=== PATIENT | male | born 1995 | race Caucasian/White ===

== ENCOUNTER 2017-04-19 23:52 | Emergency (ER) | payer SELFPAY ==
[~2017-04-19] VITALS: Ht 182.9 cm; Wt 124.0 kg
[2017-04-20 00:05] VITALS: Ht 182.9 cm; Wt 124.0 kg
[2017-04-20] MEDS ORDERED: HYDROCODONE/APAP (10/325) TAB PO ONE (01:00)
[2017-04-20] MEDS ORDERED: ONDANSETRON (ODT) 4 MG TAB ODT STA (01:01)
[2017-04-20] MEDS ORDERED: morphine 10 MG INJ IM ONE (01:30)
--- NOTE | 2017-04-20 01:39 | RADRPT ---
PROCEDURE: X-ray lumbar spine CLINICAL INDICATION: Recent surgery for pilonidal cyst TECHNIQUE: 4 views of the AP and lateral lumbar spine COMPARISON: None FINDINGS: No acute fracture or dislocation. Soft tissues unremarkable. IMPRESSION: Unremarkable lumbar spine series. RPTAT: [facility] Physician [place] Date Time Electronically viewed and signed by [employer] Physician on 04/20/2017 01:39 RS/
[2017-04-20] MEDS ORDERED: HYDR-902 PO (01:45)
[2017-04-20] MEDS ORDERED: IBUP800T25 PO (01:45)
--- NOTE | 2017-04-20 01:48 | ERD ---
ER Documentation Chief Complaint Date/Time DATE: 04/20/17 TIME: 01:46 Chief Complaint lowere back pain,sp I and D on pilonida abscesss 4 days ago, for dressing HPI Patient is a 22-year-old male who is status post incision and drainage done surgically at an outside facility 4 days ago. He still has dressing in place and has follow-up in 1 week but today he states he fell to his lower back and severe pain. He is able to ambulate slowly with pain. Denies any fever. Denies any nausea or vomiting. He states he has been taking Tylenol Motrin but does not help with the pain. ROS All systems reviewed and are negative except as per history of present illness. Medications Home Meds Active Scripts Hydrocodone/Acetaminophen (Dorrance 10-325 Tablet) 1 Each Tablet, 1 TAB PO Q6H Y for PAIN, #10 TAB Prov:LANNY OLVERA PA-C 04/20/17 Ibuprofen* (Motrin*) 800 Mg Tab, 800 MG PO Q6H Y for PAIN AND OR ELEVATED TEMP, #30 TAB Prov:LANNY OLVERA PA-C 04/20/17 Allergies Allergies: Coded Allergies: No Known Allergy (Unverified , 04/19/17) PMhx/Soc History of Surgery: No Anesthesia Reaction: No Hx Neurological Disorder: No Hx Respiratory Disorders: No Hx Cardiac Disorders: No Hx Psychiatric Problems: No Hx Miscellaneous Medical Probl: No Hx Alcohol Use: No Hx Substance Use: No Hx Tobacco Use: No Smoking Status: Never smoker FmHx Family History: No diabetes Physical Exam Vitals Vital Signs Date Time Temp Pulse Resp B/P Pulse Ox O2 Delivery O2 Flow Rate FiO2 04/20/17 00:05 98.2 61 20 128/98 98 Physical Exam INITIAL VITAL SIGNS: Reviewed by me GENERAL: Awake, alert and oriented x 4, well appearing, nontoxic, speaking in full sentences. No acute distress HEAD: Atraumatic NECK: Supple. No masses. Full range of motion. No meningismus. No midline tenderness. RESPIRATORY: Clear to auscultation bilaterally. Symmetric chest wall rise. No wheezing or rales. No accessory muscle use. CV: Regular rate and rhythm. No murmurs, rubs, or gallops. BACK: No midline tenderness to palpation. No step-offs. SKIN: Healing pilonidal cyst with dressing in place, no surrounding erythema, no active bleeding or drainage Results 24 hrs Current Medications Medications (Trade) Dose Ordered Sig/Loyd Route PRN Reason Start Time Stop Time Status Last Admin Dose Admin Acetaminophen/ Hydrocodone Bitart (Dorrance (10/325)) 1 tab ONCE ONCE PO 04/20/17 01:00 04/20/17 01:01 DC 04/20/17 00:56 Ondansetron HCl (Zofran Odt) 4 mg ONCE STAT ODT 04/20/17 01:01 04/20/17 01:02 DC 04/20/17 01:15 Morphine Sulfate (morphine) 8 mg ONCE ONCE IM 04/20/17 01:30 04/20/17 01:31 DC 04/20/17 01:15 Procedures/MDM Patient has back pain after fall onto healing pilonidal cyst. He is neurovascular intact. He was given Dorrance and morphine for pain control. X-ray was negative. He was discharged with ibuprofen a small amount of Dorrance and his dressing was changed. Patient counseled regarding my diagnostic impression and care plan. Prior to discharge all questions answered. Pt agrees with treatment plan and understands strict return precautions. Pt is instructed to follow up with primary care provider within 24-48 hours. Precautionary instructions provided including instructions to return to the ER if not improving or for any worsening or changing symptoms or concerns. Departure Diagnosis: Primary Impression: Back pain Additional Impression: Pilonidal cyst Condition: Stable Patient Instructions: Back Pain (Acute Or Chronic) Additional Instructions: Call your primary care doctor TOMORROW for an appointment during the next 1-2 days.See the doctor sooner or return here if your condition worsens before your appointment time. LANNY OLVERA PA-C Apr 20, 2017 01:48
== END 2017-04-20 01:55 | disposition home or self-care (01) ==
LOC: FTE 23:52
DX: M54.5 Low back pain (principal); L05.01 Pilonidal cyst with abscess
CPT/HCPCS: 72100; 96372; 99284; J2270